=== PATIENT | female | born 1990 | race Caucasian/White ===

== ENCOUNTER 2016-04-21 23:18 | Emergency (ER) | payer OTHER ==
[2016-04-21 23:56] VITALS: BP 122/69; PULSE 89; TEMP 98.1; BMI 27.1
--- NOTE | 2016-04-21 23:59 | PDOC ---
History of Present Illness - General History Source: Patient <Vern Petty - Last Filed: 04/22/16 02:01> - General History Source: Patient Exam Limitations: No Limitations - History of Present Illness Initial Comments: 04/22/16 00:05 The patient is a 25 year old female () with no significant past medical history who presents to the ED with 1 day of vaginal spotting. Patient reports she believes she is approximately 6 weeks , however she is not sure. She states she has not seen a [employer] yet. Patient denies abdominal pain, nausea, vomiting, and diarrhea. She denies vaginal discharge. The patient denies fever, chills, cough, SOB, chest pain, and palpitations. The patient denies dysuria, hematuria, urgency, and frequency. Allergies: NDKA Social History: No alcohol, tobacco, or drug use reported. Past Surgical History: None reported <Ursula Arzola - Last Filed: 04/22/16 02:05> - General Chief Complaint: Vaginal Bleeding Stated Complaint: VAGINAL BLEEDING Time Seen by Provider: 04/21/16 23:53 Past History - Reproductive History Is Patient Now?: Yes Cervical CA: No Dysfunctional Uterine Bleeding: No Ectopic : No Endometrial CA: No Polycystic Ovaries: No Therapeutic (s) & number: No Tubal Ligation: No - Psycho/Social/Smoking Cessation Hx Suicidal Ideation: No Smoking Status: Yes Smoking History: Former smoker Have you smoked in the past 12 months: No Number of Cigarettes Smoked Daily: 0 Information on smoking cessation initiated: No Hx Alcohol Use: No Drug/Substance Use Hx: No <Vern Petty - Last Filed: 04/22/16 02:01> <Ursula Arzola - Last Filed: 04/22/16 02:05> - Past Medical History Allergies/Adverse Reactions: Allergies Allergy/AdvReac Type Severity Reaction Status Date / Time kiwi AdvReac Difficulty Verified 04/21/16 23:51 Breathing Home Medications: Ambulatory Orders Vits #93/Iron Fum/FA [ Formula Tablet] 1 each PO DAILY Review of Systems - Review of Systems Able to Perform ROS?: Yes Comments:: 04/22/16 00:05 CONSTITUTIONAL: Absent: fever, no chills, no fatigue EYES: Absent: visual changes ENT: Absent: ear pain, no sore throat CARDIOVASCULAR: Absent: chest pain, no palpitations RESPIRATORY: Absent: cough, no SOB GI: Absent: abdominal pain, no nausea, no vomiting, no constipation, no diarrhea GENITOURINARY: +vaginal spotting Absent: dysuria, no frequency, no hematuria MUSKULOSKELETAL: Absent: back pain, no arthralgia, no myalgia SKIN: Absent: rash NEURO: Absent: headache <Ursula Arzola - Last Filed: 04/22/16 02:05> *Physical Exam - Vital Signs Last Vital Signs Temp Pulse Resp BP Pulse Ox 98.1 F 89 19 122/69 98 04/21/16 23:45 04/21/16 23:45 04/21/16 23:45 04/21/16 23:45 04/21/16 23:45 <Vern Petty - Last Filed: 04/22/16 02:01> - Vital Signs Last Vital Signs Temp Pulse Resp BP Pulse Ox 98.1 F 89 19 122/69 98 04/21/16 23:45 04/21/16 23:45 04/21/16 23:45 04/21/16 23:45 04/21/16 23:45 - Physical Exam Comments: 04/22/16 00:05 GENERAL: Well-appearing, well-nourished. No apparent distress. HEENT: Normocephalic, atraumatic. PERRL, EOM intact. CARDIOVASCULAR: Normal S1, S2. Regular rate and rhythm. PULMONARY: Clear to auscultation bilaterally. ABDOMEN: Soft, non-distended, non-tender. PELVIC: Deferred to ultrasound EXTREMITIES: Normal ROM in all four extremities. No gross deformities. SKIN: Warm, dry. No rash NEUROLOGICAL: No focal neurological deficits. <Ursula Arzola - Last Filed: 04/22/16 02:05> ED Treatment Course - LABORATORY CBC & Chemistry Diagram: 04/22/16 00:19 <Vern Petty - Last Filed: 04/22/16 02:01> - LABORATORY CBC & Chemistry Diagram: 04/22/16 00:19 - RADIOLOGY Radiograph Interpretation: 04/22/16 02:04 EXAM: TRANSVAGINAL ULTRASOUND AND DUPLEX SCAN PELVIS Reviewed by Imaging bow maker production: No ovarian torsion. Arterial and venous waveforms on the right and venous waveforms on the left. No free fluid. No visible intrauterine gestational sac, possibly due to early gestation or spontaneous . Endometrial stripe heterogeneous, thickness 9 mm. No adnexal masses appreciated. Advise correlation with quantitative serial beta- hCG and follow-up ultrasound as clinically indicated to exclude possibility of nonvisualized ectopic . <Ursula Arzola - Last Filed: 04/22/16 02:05> Medical Decision Making - Medical Decision Making 04/22/16 02:02 Dr. Petty: The scribe's documentation has been prepared under my direction and personally reviewed by me in its entirery. I confirm that the note above accurately reflects all work, treatment, procedures, and medical decision making performed by me. <Vern Petty - Last Filed: 04/22/16 02:01> *DC/Admit/Observation/Transfer - Discharge Dispostion Admit: No <Vern Petty - Last Filed: 04/22/16 02:01> - Attestations Scribe Attestion: 04/22/16 00:05 Documentation prepared by Ursula Arzola, acting as medical office coordinator for Vern Petty MD <Ursula Arzola - Last Filed: 04/22/16 02:05> Diagnosis at time of Disposition: Vagina bleeding, Threatened Qualifiers: Weeks of gestation: less than 8 weeks Qualified Code(s): Z3A.01 - Less than 8 weeks gestation of - Discharge Dispostion Disposition: HOME Condition at time of disposition: Stable - Referrals Referrals: Keagan Lozano MD [Staff Physician] - - Patient Instructions Printed Discharge Instructions: DI for Threatened
[2016-04-22 00:30] LABS: BASOPHIL 0.7 % (0-2.0); EOSINOPHIL 0.7 % (0-4.5); MCH 29.6 pg (25.7-33.7); MCHC 32.5 g/dl (32.0-36.0); MEAN CELL VOLUME 91.1 fl (80-96); MEAN PLT VOLUME 8.2 fl (7.5-11.1); NEUTROPHILS 64.8 % (42.8-82.8); PLATELET COUNT 242 K/MM3 (134-434); RDW 13.5 % (11.6-15.6); WHITE BLOOD COUNT 10.3 K/mm3 (4.0-10.0)
[2016-04-22 00:36] LABS: URINE APPEARANCE CLEAR; URINE BILIRUBIN NEGATIVE (NEGATIVE); URINE COLOR LTYELLOW; URINE GLUCOSE (UA) NEGATIVE (NEGATIVE); URINE KETONE NEGATIVE (NEGATIVE); URINE NITRITE NEGATIVE (NEGATIVE); URINE PROTEIN NEGATIVE (NEGATIVE); URINE UROBILINOGEN NEGATIVE E.U./dl (0.2-1.0)
[2016-04-22 00:37] LABS: URINE BLOOD 3+ (NEGATIVE); URINE LEUK ESTERASE TRACE (NEGATIVE)
[2016-04-22 00:48] LABS: INR 0.99 (0.82-1.09); PROTHROMBIN TIME (PATIENT) 10.9 SEC (9.98-11.88); URINE BACTERIA FEW /hpf (NONE SEEN); URINE MUCUS RARE; URINE RBC 205 /hpf (0-3); URINE WBC 9 /hpf (3-5)
== END 2016-04-22 02:31 | disposition home or self-care (01) ==
LOC: JER 23:18
DX: O20.0 Threatened abortion (principal); Z3A.01 Less than 8 weeks gestation of pregnancy
CPT/HCPCS: 36415; 76817-TC; 81003; 81015; 84702; 84703; 85025; 85610; 86850; 86900; 86901; 99284-25